=== PATIENT | female | born 1985 | race Caucasian/White ===

== ENCOUNTER → 2016-04-23 | Outpatient (CLI) | payer BC ==
[2016-04-23 08:12] LABS: CH 29.6; CHCM 34.2; HCT 38.7 % (34.0-46.0); HDW 2.42; HGB 13.1 gm/dL (11.4-16.0); MCH 29.4 pg (25.0-35.0); MCHC 33.8 g/dL (31.0-37.0); MCV 86.9 fL (80.0-100.0); Mean Platelet Volume 7.1; RBC 4.46 m/uL (3.80-5.40); RDW 12.5 % (11.5-15.5)
[2016-04-23 08:26] LABS: Glucose 91 mg/dL (74-99); Non-African American GFR(MDRD) >60 (>60 ml/min/1.73 sqM)
[2016-04-24 05:18] LABS: Toxoplasma Antibody (IgG) <3.0 IU/mL (<7.2)
== END ==
LOC: LABWHC1 07:33
PROVIDERS: ATTEND Obstetrics & Gynecology
DX: Z34.81 Encounter for supervision of other normal pregnancy, first trimester (principal); R80.9 Proteinuria, unspecified; R53.83 Other fatigue
CPT/HCPCS: 36415; 82565; 82947; 85027; 86762; 86777; 86778; 86850; 86900; 86901

== ENCOUNTER → 2016-07-09 | Outpatient (CLI) | payer BC ==
[2016-07-09 10:19] LABS: CH 29.4; CHCM 32.1; HCT 36.2 % (34.0-46.0); HGB 11.9 gm/dL (11.4-16.0); MCH 30.3 pg (25.0-35.0); MCHC 32.8 g/dL (31.0-37.0); MCV 92.3 fL (80.0-100.0); Mean Platelet Volume 6.6; RBC 3.92 m/uL (3.80-5.40); RDW 13.6 % (11.5-15.5); WBC 11.2 k/uL (3.8-10.6)
== END | disposition home or self-care (01) ==
LOC: LABWHC1 08:04
PROVIDERS: ATTEND Obstetrics & Gynecology
DX: Z34.82 Encounter for supervision of other normal pregnancy, second trimester (principal); Z3A.00 Weeks of gestation of pregnancy not specified
CPT/HCPCS: 36415; 82950; 85027

== ENCOUNTER → 2016-07-10 | Outpatient (CLI) | payer BC ==
[2016-07-10 14:28] LABS: 24-hr Urine Specific Gravity 1.005 (1.001-1.035)
== END | disposition home or self-care (01) ==
LOC: LABWHC1 08:54
PROVIDERS: ATTEND Obstetrics & Gynecology
DX: Z34.82 Encounter for supervision of other normal pregnancy, second trimester (principal)
CPT/HCPCS: 81050; 84156

== ENCOUNTER → 2016-08-19 | Outpatient (CLI) | payer BC ==
[2016-08-19 09:10] LABS: CH 29.5; CHCM 34.2; HCT 33.1 % (34.0-46.0); HDW 2.61; HGB 11.6 gm/dL (11.4-16.0); MCH 30.4 pg (25.0-35.0); Mean Platelet Volume 6.6; RBC 3.81 m/uL (3.80-5.40); RDW 13.4 % (11.5-15.5); WBC 12.6 k/uL (3.8-10.6)
[2016-08-19 09:15] LABS: MCV 86.7 fL (80.0-100.0)
[2016-08-19 09:23] LABS: ALT 22 U/L (9-52); AST 18 U/L (14-36); LDH 285 U/L (313-618); Non-African American GFR(MDRD) >60 (>60 ml/min/1.73 sqM); Uric Acid 4.6 mg/dL (3.7-7.4)
== END ==
LOC: LABWHC1 08:26
PROVIDERS: ATTEND Obstetrics & Gynecology
DX: R80.9 Proteinuria, unspecified (principal)
CPT/HCPCS: 36415; 82565; 83615; 84450; 84460; 84550; 85027

== ENCOUNTER 2016-08-20 19:49 | Outpatient (CLI) | payer BC ==
[2016-08-20 20:48] VITALS: BP 124/71; PULSE 90; RESP 18; TEMP 96
--- NOTE | 2016-08-23 16:18 | P.MSEPDOC ---
Presenting Problems - Arrival Data Date of Arrival on Unit: 08/20/16 Time of Arrival on Unit: 19:51 Mode of Transport: Ambulatory - Complaint OB-Reason for Admission/Chief Complaint: Other Comment: pain between shoulder blades Medical History - Information : 2 Para: 1 Term: 1 : 0 Abortions: Spontaneous or Elective: 0 Number of Living Children: 1 - Gestational Age Expected Date of Delivery: 10/18/16 Gestational Age by BERTHA (wks/days): 32 Weeks and 0 Days - History Complications: Prior , Other Comment: history of preeclampsia with previous Review of Systems - Review of Systems Constitutional: No problems Breast: No problems ENT: No problems Cardiovascular: No problems Respiratory: No problems Gastrointestinal: No problems Genitourinary: No problems Musculoskeletal: No problems Neurological: No problems Skin: No problems Vital Signs - Temperature Temperature: 96.0 F Temperature Source: Temporal Artery Scan - Pulse Right Sitting Brachial Pulse Rate: 90 Pulse Assessment Method: Automatic Cuff - Respirations Respiratory Rate: 18 O2 Sat by Pulse Oximetry: 99 - Blood Pressure Right Arm Blood Pressure: 124/71 Blood Pressure Mean: 88 Blood Pressure Source: Automatic Cuff Medical Screen Scoring (Pre) - Cervical Exam Dilation: Exam Deferred Effacement: Exam Deferred Membranes: Intact - Uterine Contractions Frequency: N/A Duration: N/A Intensity: N/A - Maternal Vital Signs Maternal Temperature: N/A Maternal Blood Pressure: N/A Signs of Preeclampsia: N/A Maternal Respirations: N/A - Maternal Trauma Maternal Trauma: N/A - Assessment Baseline FHR: 130 Heart Rate - NICHD Category: Category I (Normal) = 0 Position: N/A - Total Score Total Score (Pre): 0 - Level of Risk Level of Risk: Low (0-5) Physician Notification (Pre) - Physician Notified Physician Notified Date: 08/20/16 Physician Notified Time: 20:12 Physician/Practitioner Notifed:: Luis A Spoke With: luis a New Order Received: Yes Disposition - Disposition OB Disposition: Physician follow up in office, Discharge to home Discharge Date: 08/20/16 Discharge Time: 20:32 I agree with the RN Medical Screening Exam: Yes Risk & Benefit of care provided described in d/c instruction: Yes Diagnosis: PAIN IN THORACIC SPINE
== END 2016-08-20 20:32 | disposition home or self-care (01) ==
LOC: FBPOP 19:49
PROVIDERS: ATTEND Obstetrics & Gynecology
DX: O99.89 Other specified diseases and conditions complicating pregnancy, childbirth and the puerperium (principal); M54.6 Pain in thoracic spine; Z3A.32 32 weeks gestation of pregnancy
CPT/HCPCS: 59025; 99213

== ENCOUNTER → 2016-08-27 | Outpatient (CLI) | payer BC ==
[2016-08-27 10:19] LABS: CH 29.9; CHCM 34.1; HCT 33.5 % (34.0-46.0); HDW 2.59; HGB 11.1 gm/dL (11.4-16.0); MCH 29.2 pg (25.0-35.0); MCHC 33.1 g/dL (31.0-37.0); MCV 88.2 fL (80.0-100.0); Mean Platelet Volume 7.1; RDW 13.7 % (11.5-15.5); WBC 11.4 k/uL (3.8-10.6)
[2016-08-27 10:47] LABS: ALT 28 U/L (9-52); AST 20 U/L (14-36); Alkaline Phosphatase 75 U/L (38-126); Blood Urea Nitrogen 3 mg/dL (7-17); LDH 321 U/L (313-618); Non-African American GFR(MDRD) >60 (>60 ml/min/1.73 sqM); Total Bilirubin 0.2 mg/dL (0.2-1.3); Total Protein 5.4 g/dL (6.3-8.2)
[2016-08-27 12:26] LABS: Hemoglobin A1C 5.7 % (4.2-6.1)
[2016-08-28 03:15] LABS: Rubella IgG Ab 2.13 (<0.90); Toxoplasma Antibody (IgG) <3.0 IU/mL (<7.2)
== END ==
LOC: LABWHC1 09:44
PROVIDERS: ATTEND Obstetrics & Gynecology
DX: R80.9 Proteinuria, unspecified (principal)
CPT/HCPCS: 36415; 80076; 82565; 83036; 83615; 84520; 84550; 85027; 86644; 86645; 86694; 86695; 86696; 86762; 86777; 86778

== ENCOUNTER → 2016-09-05 | Outpatient (CLI) | payer BC ==
[2016-09-05 08:20] LABS: CHCM 33.9; HCT 34.7 % (34.0-46.0); HDW 2.61; HGB 11.5 gm/dL (11.4-16.0); MCH 29.5 pg (25.0-35.0); MCHC 33.1 g/dL (31.0-37.0); MCV 89.1 fL (80.0-100.0); Mean Platelet Volume 7.6; RDW 14.1 % (11.5-15.5); WBC 11.1 k/uL (3.8-10.6)
[2016-09-05 10:45] LABS: 24-hr Urine Specific Gravity 1.004 (1.001-1.035)
== END | disposition home or self-care (01) ==
LOC: LABWHC1 07:25
PROVIDERS: ATTEND Obstetrics & Gynecology
DX: R80.9 Proteinuria, unspecified (principal)
CPT/HCPCS: 36415; 81050; 83615; 84156; 84450; 84460; 84550; 85027

== ENCOUNTER → 2016-09-16 | Outpatient (CLI) | payer BC ==
[2016-09-16 10:05] LABS: CH 30.5; CHCM 33.9; HCT 36.2 % (34.0-46.0); HGB 11.8 gm/dL (11.4-16.0); MCH 29.5 pg (25.0-35.0); MCHC 32.5 g/dL (31.0-37.0); MCV 90.5 fL (80.0-100.0); Mean Platelet Volume 7.5; RDW 14.3 % (11.5-15.5); WBC 13.1 k/uL (3.8-10.6)
[2016-09-16 10:21] LABS: ALT 23 U/L (9-52); AST 20 U/L (14-36); LDH 343 U/L (313-618); Non-African American GFR(MDRD) >60 (>60 ml/min/1.73 sqM); Uric Acid 4.7 mg/dL (3.7-7.4)
== END | disposition home or self-care (01) ==
LOC: LABWHC1 09:21
PROVIDERS: ATTEND Obstetrics & Gynecology
DX: R80.9 Proteinuria, unspecified (principal)
CPT/HCPCS: 36415; 82565; 83615; 84450; 84460; 84550; 85027

== ENCOUNTER → 2016-09-22 | Outpatient (CLI) | payer BC ==
[2016-09-22 10:40] LABS: CH 30.6; CHCM 33.8; HCT 37.2 % (34.0-46.0); HDW 2.69; HGB 12.4 gm/dL (11.4-16.0); MCH 30.4 pg (25.0-35.0); MCHC 33.4 g/dL (31.0-37.0); Mean Platelet Volume 7.7; RBC 4.08 m/uL (3.80-5.40); RDW 14.3 % (11.5-15.5); WBC 13.4 k/uL (3.8-10.6)
[2016-09-22 11:03] LABS: ALT 24 U/L (9-52); AST 19 U/L (14-36); LDH 332 U/L (313-618); Non-African American GFR(MDRD) >60 (>60 ml/min/1.73 sqM); Uric Acid 5.1 mg/dL (3.7-7.4)
== END ==
LOC: LABWHC1 10:04
PROVIDERS: ATTEND Obstetrics & Gynecology
DX: R80.9 Proteinuria, unspecified (principal)
CPT/HCPCS: 36415; 82565; 83615; 84450; 84460; 84550; 85027

== ENCOUNTER 2016-09-30 10:05 | Inpatient (IN) | payer BC ==
--- NOTE | 2016-09-25 07:51 | P.HPOB ---
History of Present Illness H&P Date: 09/25/16 Chief Complaint: Patient is presenting for repeat section secondary to severe prote This patient is a pleasant 31-year-old 2 para 1 female estimated date of confinement 10/19/2016 estimated gestational age 37-2/7 weeks gestation who presents to labor and delivery for repeat section secondary to previous section, severe proteinuria, and polyhydramnios. Patient's history is such that she underwent a section last at 37 weeks for preeclampsia and proteinuria. Patient's been followed very closely this with myself and Dr. Pruett at maternal medicine. Patient once again has developed significant proteinuria with 1438 g of protein. She also has been followed for significant polyhydramnios with an JERONIMO of greater than 30. Patient's had nonstress testing and serial ultrasounds. Dr. Pruett at maternal medicine has recommended delivery at 37 weeks. Patient now presents for this. Patient has had weekly preeclampsia labs that have been normal. Blood pressures have remained normotensive as well. Review of Systems Constitutional: Denies chills, Denies fever Ears, nose, mouth and throat: Denies headache, Denies sore throat Cardiovascular: Denies chest pain, Denies shortness of breath Respiratory: Denies cough Gastrointestinal: Reports heartburn Genitourinary: Reports Menstruation: Reports amenorrhea Musculoskeletal: bilateral: ankle swelling Past Medical History Past Medical History: Supraventricular Tachycardia (SVT) Additional Past Medical History / Comment(s): Persistent proteinuria; viral menengitis History of Any Multi-Drug Resistant Organisms: None Reported Past Surgical History: Adenoidectomy, Section, Heart Catheterization, Tonsillectomy Additional Past Surgical History / Comment(s): Patient has had liposuction of her lower abdomen. Past Anesthesia/Blood Transfusion Reactions: Postoperative Nausea & Vomiting ( PONV) Smoking Status: Never smoker - Past Family History Father Family Medical History: Hyperlipidemia Additional Family Medical History / Comment(s): knee surgery, kidney stones, Medications and Allergies Home Medications Medication Instructions Recorded Confirmed Type Aspirin 1 PO DAILY 08/20/16 History Pnv,Calcium 72/Iron/Folic Acid 1 tab PO DAILY 08/20/16 08/20/16 History [ Plus Tablet] Allergies Allergy/AdvReac Type Severity Reaction Status Date / Time metoclopramide HCl Allergy Unknown Verified 08/20/16 20:06 [From Reglan] Exam - OBG Physical Exam Abdomen: bowel sounds normal, no diffuse tenderness, no bruit present, no guarding noted, no hepatomegaly, no splenomegaly, no mass Vulva: both: normal Vagina: normal moisture, no discharge Cervix: Cervix in the office was closed thick and high. Uterus: enlarged (Fundal height was 43 cm.) Results blood work shows she is B positive, rubella immune, RPR nonreactive, hepatitis B negative, HIV negative, Glucola was normal as well as hemoglobin A1c , maternal medicine level III and heart echo were normal, group B strep was negative, 24-hour urine showed 1438 g of protein. Ultrasound shows polyhydramnios with an JERONIMO of 30.1 cm. Assessment and Plan (1) Proteinuria affecting in third trimester Narrative/Plan: This is a pleasant 31-year-old 2 para 1 female 37-2/7 weeks gestation with multiple complicating factors including significant proteinuria, polyhydramnios. Per recommendations from maternal- medicine, plan is delivery at 37 weeks. Patient does have a history of previous section and request repeat. Therefore, plan is repeat section. Patient and I have discussed the surgery and risks including risks of infection, bleeding, possible injury to bowel, bladder, vessels, and/or other organs. Patient understands risk of DVT and pulmonary embolism. All the patient's questions are answered and a written consent is obtained. Status: Acute (2) Polyhydramnios affecting in third trimester Status: Acute (3) Previous delivery affecting Status: Acute
[2016-09-26 10:41] VITALS: BMI 34.5
[2016-09-30] MEDS ORDERED: LACTATED RINGERS 1,000 ML IV SCH (10:16)
[2016-09-30] MEDS ORDERED: LACTATED RINGERS 1,000 ML IV ONE (10:16)
[2016-09-30] MEDS ORDERED: CITRIC ACID-SODIUM CITRATE 15 ML CUP PO ONE (10:16)
[2016-09-30 11:00] LABS: Basophils % (A) 0 %; CH 29.9; CHCM 34.2; Eosinophils # (A) 0.1 k/uL (0-0.7); Eosinophils % (A) 1 %; HCT 37.2 % (34.0-46.0); HDW 2.75; HGB 12.6 gm/dL (11.4-16.0); Luc # (Auto) 0.21; Luc % (Auto) 2; Lymphocytes % (A) 9 %; MCH 29.7 pg (25.0-35.0); MCHC 33.9 g/dL (31.0-37.0); MCV 87.7 fL (80.0-100.0); Mean Platelet Volume 7.1; Monocytes # (A) 0.7 k/uL (0-1.0); Monocytes % (A) 6 %; Neutrophils # (A) 9.8 k/uL (1.3-7.7); Neutrophils % (A) 83 %; RBC 4.24 m/uL (3.80-5.40); RDW 13.8 % (11.5-15.5); WBC 11.8 k/uL (3.8-10.6); WBC (Perox) 12.87
[2016-09-30 11:03] LABS: Prothrombin Time 10.1 sec (9.0-12.0)
[2016-09-30 11:05] LABS: Bilirubin, Delta 0.1 mg/dL (0.0-0.2); Total Bilirubin 0.4 mg/dL (0.2-1.3); Total Protein 5.4 g/dL (6.3-8.2)
[2016-09-30] MEDS ORDERED: OXYTOCIN 10 UNIT/ML 1 ML VIAL ONE (11:59)
[2016-09-30] MEDS ORDERED: PHENYLEPHRINE-0.9% NACL SYG 1 MG/10 ML SYRINGE ONE (11:59)
[2016-09-30] MEDS ORDERED: ePHEDrine SULFATE/0.9% NACL/PF 50 MG/5 ML SYRINGE IV ONE (11:59)
[2016-09-30] MEDS ORDERED: MORPHINE SULFATE (PF) 0.3 MG/0.3 ML SYR ONE (11:59)
[2016-09-30] MEDS ORDERED: KETOROLAC 30 MG/ML 1 ML VIAL ONE (11:59)
[2016-09-30] MEDS ORDERED: ONDANSETRON 4 MG/2 ML VIAL ONE (11:59)
[2016-09-30] MEDS ORDERED: ceFAZolin 2 GM in SODIUM CHLORIDE 0.9% 100 ML IVPB ONE (12:00)
--- NOTE | 2016-09-30 12:44 | P.OP ---
Date of Procedure: 09/30/16 Preoperative Diagnosis: #1: 37-2/7 week intrauterine . #2: Previous low transverse desires repeat. #3: Significant proteinuria requiring delivery. #4: Polyhydramnios. Postoperative Diagnosis: #1: Same. #2: macrosomia Procedure(s) Performed: Repeat low transverse section. Implants: Anesthesia: spinal Surgeon: Moises Tran User Interface Developer #1: Stephane Zepeda Estimated Blood Loss (ml): 800 Pathology: other (Placenta) Condition: stable Disposition: floor Indications for Procedure: Please see dictated H&P for intimate details of this patient's admission. Brief summary this is a pleasant 31-year-old 2 para 1 female 37-2/7 weeks gestation who is admitted to labor and delivery for repeat section secondary to severe proteinuria and polyhydramnios. Please see history and physical in regards to the indications for delivery. Patient does understand the surgery and risks including risks of infection, bleeding, possible injury to bowel, bladder, vessels, and/or other organs. She also understands risk of DVT and pulmonary embolism. All the patient's questions are answered and a written consent is obtained. Operative Findings: This was a vigorous viable female Apgars 9 and 9 delivery time is 1213 hrs. Infant had spontaneous respirations and good cry. There was significant polyhydramnios. Description of Procedure: This patient has a Barakat catheter placed to straight drain. She is subsequently taken to the operating room where she sat up and spinal anesthetic is administered without incident. With an adequate level of anesthesia she has abdominal prep and drape. Scalpel is then taken in the previous Pfannenstiel incision is incised. A second scalpel is taken down to the fascia and it is scored with the scalpel. The fascial incision is extended bilaterally using the Lema scissors. The fascia is then dissected sharply off the rectus muscles. The rectus muscles are and the peritoneum is identified and entered sharply. The peritoneal incision extended superior and inferior without difficulty. Bladder blade is then placed. The bladder peritoneum was taken off the lower uterine segment sharply. Scalpel is then taken and a low transverse uterine incision is then made. Using a hemostat I gently into the uterine cavity and there is loss of a large amount of clear fluid. This incision is extended bluntly. The 's head is then guided through the incision. With fundal pressure we have delivery the 's head. It is bulb suctioned. We then have delivery anterior and posterior shoulder and rest this infant's body. This is a vigorous viable female Apgars are 9 and 9 delivery time is 1213 hrs. Infant grossly appears normal as Apgars of 9 and 9. After delivery of the the umbilical cord is doubly clamped and cut appears to be trivascular. The placenta is then manually extracted intact. The uterus is then externalized and the uterine incision demarcated with Kimble clamps. Uterine incision is then closed using 0 Vicryl running locked fashion 2 layers. Excellent hemostasis is noted. Bladder peritoneum was then reapproximated using a 3-0 Vicryl usual fashion. With this done excess fluid is removed from the abdomen and pelvis. The uterus tubes and ovaries appear normal for term gestation. The uterus is placed back into the abdomen. The parietal peritoneum was then closed using 0 Vicryl running fashion. Rectus muscles are reapproximated in 0 Vicryl interrupted fashion. Fascia is then closed using 0 PDS. Fascial incision is intact and hemostatic. Subcutaneous tissues and closed using a 3-0 Vicryl. Skin is and closed using susana. All counts are correct 3. There are no complications. Infant and mother are taken to the birthing suite in satisfactory condition.
[2016-09-30] MEDS ORDERED: ACETAMINOPHEN TAB 325 MG TAB PO PRN (14:04)
[2016-09-30] MEDS ORDERED: Acetaminophen-Codeine 300-30mg TAB PO PRN ×2 (14:04)
[2016-09-30] MEDS ORDERED: OXYTOCIN 20 UNITS/1000 ML NS 1,000 ML IV SCH (14:04)
[2016-09-30] MEDS ORDERED: diphenhydrAMINE 25 MG CAP PO PRN (14:04)
[2016-09-30] MEDS ORDERED: ZOLPIDEM 5 MG TAB PO PRN (14:04)
[2016-09-30] MEDS ORDERED: NALOXONE 0.4 MG/ML 1 ML VIAL IV PRN (14:04)
[2016-09-30] MEDS ORDERED: ONDANSETRON 4 MG/2 ML VIAL IVP PRN ×2 (14:04→17:24)
[2016-09-30] MEDS ORDERED: METOCLOPRAMIDE 5 MG/ML 2 ML VIAL IVP PRN (14:04)
[2016-09-30] MEDS ORDERED: SIMETHICONE 80 MG CHEWABLE PO PRN (14:04)
[2016-09-30] MEDS ORDERED: DEXAMETHASONE SOD PHOSPHATE 4 MG/ML 1 ML VIAL IV STA (14:41)
[2016-09-30] MEDS ORDERED: DEXAMETHASONE SOD PHOSPHATE 10 MG/ML 1 ML VIAL IV STA (14:41)
[2016-09-30] MEDS: LACTATED RINGERS 1,000 ML IV SCH (15:36)
[2016-09-30] MEDS: diphenhydrAMINE 50 MG/ML 1 ML VIAL IVP PRN (19:55)
[2016-09-30] MEDS: SENNOSIDES-DOCUSATE SODIUM 1 EACH TAB PO SCH (20:46)
[2016-10-01] MEDS: LACTATED RINGERS 1,000 ML IV SCH ×3 (00:13→22:42)
[2016-10-01] MEDS: diphenhydrAMINE 50 MG/ML 1 ML VIAL IVP PRN ×2 (01:36→09:18)
[2016-10-01] MEDS: KETOROLAC 30 MG/ML 1 ML VIAL IVP PRN ×3 (01:48→15:59)
--- NOTE | 2016-10-01 06:36 | P.PNOBGPC ---
Subjective - Subjective Patient reports: Reports appetite normal, Reports voiding normally, Reports pain well controlled, Reports ambulating normally : doing well Objective - Vital Signs Latest vital signs: Vital Signs Temp Pulse Resp BP Pulse Ox 10/01/16 04:00 98.1 F 67 16 112/59 96 10/01/16 00:00 97.9 F 76 16 116/51 97 09/30/16 20:00 98.1 F 83 16 142/77 98 09/30/16 15:30 98.4 F 69 16 108/54 09/30/16 14:39 74 18 112/55 09/30/16 14:09 80 18 110/59 09/30/16 13:39 79 18 105/52 97 09/30/16 13:24 78 18 102/55 98 09/30/16 13:09 89 18 102/48 09/30/16 12:54 89 18 102/48 97 09/30/16 12:39 97.5 F L 84 18 106/48 98 09/30/16 10:28 97.3 F L 88 18 122/61 Intake and Output 09/30/16 09/30/16 10/01/16 14:59 22:59 06:59 Intake Total 2000 300 Output Total 325 450 Balance 2000 -325 -150 Intake: IV 900 Intake, IV Titration 1100 Amount Lactated Ringers 1,000 ml 1000 @ 4000 mls/hr IV .Q15M ONE Rx#:[id number] ceFAZolin 2 gm In Sodium 100 Chloride 0.9% 100 ml @ 100 mls/hr IVPB ONCE ONE Rx#:[id number] Oral 300 Output: Urine 200 450 Uretheral (Barakat) 250 Emesis 125 Other: # Voids 1 Weight 97.069 kg Patient Weight 10/01/16 06:59 Weight 97.069 kg - Exam Lungs: bilateral: normal Chest: Normal S1, Normal S2 Extremities: Present: normal Abdomen: Present: normal appearance, soft. Absent: distention, tenderness Incision: Present: normal, dry, intact Uterus: Present: normal, firm - Labs Labs: Abnormal Lab Results - Last 24 Hours (Table) 09/30/16 09/30/16 Range/Units 10:45 10:45 WBC 11.8 H (3.8-10.6) k/uL Neutrophils # 9.8 H (1.3-7.7) k/uL Total Protein 5.4 L (6.3-8.2) g/dL Albumin 3.1 L (3.5-5.0) g/dL Assessment and Plan (1) Proteinuria affecting in third trimester Narrative/Plan: Postoperative day #1. Patient is resting without complaints. Vital signs are stable she is afebrile. Uterus is firm nontender and her incision is intact and dry. CBC is pending at time of this dictation. My impression is a normal postoperative course. Plan is to check CBC, encourage ambulation, allow the patient to shower, advanced to a regular diet. Current Visit: Yes Status: Acute Code(s): O12.13 - GESTATIONAL PROTEINURIA, THIRD TRIMESTER SNOMED Code(s): 09003529 (2) Polyhydramnios affecting in third trimester Current Visit: Yes Status: Acute Code(s): O40.3XX0 - POLYHYDRAMNIOS, THIRD TRIMESTER, NOT APPLICABLE OR UNSP SNOMED Code(s): 561249237 (3) Previous delivery affecting Current Visit: Yes Status: Acute Code(s): O34.219 - MATERNAL CARE FOR UNSP TYPE SCAR FROM PREVIOUS DEL SNOMED Code(s): 201615108
[2016-10-01 08:01] LABS: Basophils % (A) 0 %; CH 29.8; CHCM 33.5; Eosinophils # (A) 0.1 k/uL (0-0.7); Eosinophils % (A) 1 %; HDW 2.64; HGB 10.1 gm/dL (11.4-16.0); Luc # (Auto) 0.22; Luc % (Auto) 2; Lymphocytes # (A) 1.4 k/uL (1.0-4.8); Lymphocytes % (A) 10 %; MCHC 33.6 g/dL (31.0-37.0); MCV 89.3 fL (80.0-100.0); Mean Platelet Volume 6.9; Monocytes # (A) 0.9 k/uL (0-1.0); Monocytes % (A) 6 %; Neutrophils # (A) 12.3 k/uL (1.3-7.7); Neutrophils % (A) 82 %; RBC 3.36 m/uL (3.80-5.40); RDW 13.8 % (11.5-15.5); WBC 14.9 k/uL (3.8-10.6); WBC (Perox) 15.62
[2016-10-01] MEDS: SENNOSIDES-DOCUSATE SODIUM 1 EACH TAB PO SCH ×2 (09:17→22:03)
[2016-10-01] MEDS: IBUPROFEN 600 MG TAB PO PRN (22:02)
--- NOTE | 2016-10-02 06:10 | P.PNOBGPC ---
Subjective - Subjective Patient reports: Reports appetite normal, Reports voiding normally, Reports pain well controlled, Reports ambulating normally : doing well Objective - Vital Signs Latest vital signs: Vital Signs Temp Pulse Resp BP Pulse Ox 10/02/16 00:00 97.9 F 76 16 111/70 10/01/16 16:00 97.9 F 81 16 99/55 99 10/01/16 12:00 98.1 F 72 16 103/60 98 10/01/16 07:59 98.1 F 73 16 103/53 98 Intake and Output 10/01/16 10/01/16 10/02/16 14:59 22:59 06:59 Output Total 400 Balance -400 Output: Urine 400 Other: # Voids 1 1 1 - Exam Lungs: bilateral: normal Chest: Normal S1, Normal S2 Extremities: Present: normal Abdomen: Present: normal appearance, soft. Absent: distention, tenderness Incision: Present: normal, dry, intact Uterus: Present: normal, firm - Labs Labs: Abnormal Lab Results - Last 24 Hours (Table) 10/01/16 Range/Units 07:06 WBC 14.9 H (3.8-10.6) k/uL RBC 3.36 L (3.80-5.40) m/uL Hgb 10.1 L (11.4-16.0) gm/dL Hct 30.0 L (34.0-46.0) % Neutrophils # 12.3 H (1.3-7.7) k/uL Assessment and Plan (1) Proteinuria affecting in third trimester Narrative/Plan: Post operative day #2. Patient is resting without complaints. Vital signs are stable she is afebrile. Uterus is firm nontender her incision is intact and dry. CBC was normal yesterday. My impression is a normal postoperative course. Plan is to continue routine postoperative care. Current Visit: Yes Status: Acute Code(s): O12.13 - GESTATIONAL PROTEINURIA, THIRD TRIMESTER SNOMED Code(s): 06225499 (2) Polyhydramnios affecting in third trimester Current Visit: Yes Status: Acute Code(s): O40.3XX0 - POLYHYDRAMNIOS, THIRD TRIMESTER, NOT APPLICABLE OR UNSP SNOMED Code(s): 130800925 (3) Previous delivery affecting Current Visit: Yes Status: Acute Code(s): O34.219 - MATERNAL CARE FOR UNSP TYPE SCAR FROM PREVIOUS DEL SNOMED Code(s): 443445800
[2016-10-02] MEDS: SENNOSIDES-DOCUSATE SODIUM 1 EACH TAB PO SCH ×2 (08:04→20:27)
[2016-10-02] MEDS: IBUPROFEN 600 MG TAB PO PRN ×3 (08:04→20:27)
[2016-10-03 00:09] VITALS: RESP 16
[2016-10-03] MEDS: IBUPROFEN 600 MG TAB PO PRN (02:18)
--- NOTE | 2016-10-03 06:13 | P.PNOBGPC ---
Subjective - Subjective Patient reports: Reports appetite normal, Reports voiding normally, Reports pain well controlled, Reports ambulating normally : doing well Objective - Vital Signs Latest vital signs: Vital Signs Temp Pulse Resp BP Pulse Ox 10/03/16 00:00 98.7 F 56 L 16 103/58 98 10/02/16 16:00 98.4 F 86 18 110/70 98 10/02/16 08:00 98.2 F 71 18 125/72 99 Intake and Output 10/02/16 10/02/16 10/03/16 14:59 22:59 06:59 Other: # Voids 1 # Bowel Movements 1 - Exam Lungs: bilateral: normal Chest: Normal S1, Normal S2 Extremities: Present: normal Abdomen: Present: normal appearance, soft. Absent: distention, tenderness Incision: Present: normal, dry, intact Uterus: Present: normal, firm Assessment and Plan (1) Proteinuria affecting in third trimester Narrative/Plan: Patient is resting without complaints. Vital signs are stable she's afebrile. Uterus is firm nontender she's having normal lochia. Patient is tolerating regular diet, urinating, ambulating without difficulty. Incision is intact and dry. My impression is a normal course. Plan is to continue routine care discharge home later this morning. Current Visit: Yes Status: Acute Code(s): O12.13 - GESTATIONAL PROTEINURIA, THIRD TRIMESTER SNOMED Code(s): 86794121 (2) Polyhydramnios affecting in third trimester Current Visit: Yes Status: Acute Code(s): O40.3XX0 - POLYHYDRAMNIOS, THIRD TRIMESTER, NOT APPLICABLE OR UNSP SNOMED Code(s): 537773332 (3) Previous delivery affecting Current Visit: Yes Status: Acute Code(s): O34.219 - MATERNAL CARE FOR UNSP TYPE SCAR FROM PREVIOUS DEL SNOMED Code(s): 886984098
--- NOTE | 2016-10-03 06:16 | P.DS ---
Providers Date of admission: 09/30/16 10:05 Expected date of discharge: 10/03/16 Attending physician: Moises Tran Primary care physician: Iron Zuñiga - Discharge Diagnosis(es) (1) Proteinuria affecting in third trimester Current Visit: Yes Status: Acute (2) Polyhydramnios affecting in third trimester Current Visit: Yes Status: Acute (3) Previous delivery affecting Current Visit: Yes Status: Acute Hospital Course: Please see dictated H&P for intimate details of this patient's admission. Brief summary this is a pleasant 31-year-old 2 para 1 female 37-2/7 weeks gestation who is admitted to labor and delivery for repeat section secondary to significant proteinuria, polyhydramnios. Patient is repeat low transverse section for viable female infant. Please see dictated operative note. Postoperative patient does well and on postoperative 3 is felt to be stable for discharge home follow up with me in 1 week. Procedures: Repeat low transverse sections. Patient Condition at Discharge: Good Plan - Discharge Summary New Discharge Prescriptions: New Acetaminophen-Codeine 300-30mg [Tylenol w/codeine #3] 1 - 2 each PO Q4HR PRN #30 tab PRN Reason: Mild Pain Ibuprofen [Motrin] 600 mg PO Q6HR PRN #40 tab PRN Reason: Mild Pain Or Fever >= 100.5 No Action Pnv,Calcium 72/Iron/Folic Acid [ Plus Tablet] 1 tab PO DAILY Aspirin 81 mg PO DAILY Ranitidine HCl [Zantac] 150 mg PO BID Cetirizine HCl [Zyrtec] 10 mg PO DAILY Dha 1 tab PO DAILY Discharge Medication List Aspirin 81 mg PO DAILY 08/20/16 [History] Pnv,Calcium 72/Iron/Folic Acid [ Plus Tablet] 1 tab PO DAILY 08/20/16 [ History] Cetirizine HCl [Zyrtec] 10 mg PO DAILY 09/26/16 [History] Dha 1 tab PO DAILY 09/26/16 [History] Ranitidine HCl [Zantac] 150 mg PO BID 09/26/16 [History] Acetaminophen-Codeine 300-30mg [Tylenol w/codeine #3] 1 - 2 each PO Q4HR PRN # 30 tab 10/03/16 [Rx] Ibuprofen [Motrin] 600 mg PO Q6HR PRN #40 tab 10/03/16 [Rx] Follow up Appointment(s)/Referral(s): Moises Tran MD [STAFF PHYSICIAN] - 1 Week (Patient also has a visit on November 10 at 9:15 AM.) Patient Instructions/Handouts: (DC) Activity/Diet/Wound Care/Special Instructions: No heavy lifting or strenuous activity for 6 weeks. Please call if any fever, chills, excessive vaginal bleeding, and/or abdominal pain. Discharge Disposition: HOME SELF-CARE
[2016-10-03] MEDS: SENNOSIDES-DOCUSATE SODIUM 1 EACH TAB PO SCH (08:13)
[2016-10-03 08:20] VITALS: BP 108/71; PULSE 75; TEMP 98.3
== END 2016-10-03 10:30 | disposition home or self-care (01) | DRG 766 ==
LOC: 4FBP 10:05
PROVIDERS: ADMIT Obstetrics & Gynecology; ATTEND Obstetrics & Gynecology
PROC: 10D00Z1 Extraction of Products of Conception, Low, Open Approach (ICD-10-PCS; principal; 2016-09-30 12:00)
DX: O40.3XX0 Polyhydramnios, third trimester, not applicable or unspecified (principal); O36.63X0 Maternal care for excessive fetal growth, third trimester, not applicable or unspecified; Z37.0 Single live birth; O34.211 Maternal care for low transverse scar from previous cesarean delivery; O12.14 Gestational proteinuria, complicating childbirth; Z3A.37 37 weeks gestation of pregnancy
CPT/HCPCS: 80076; 85025; 85610; 85730; 86850; 86900; 86901; 88307

== ENCOUNTER → 2017-09-17 | Outpatient (CLI) | payer BC, MEDICAID ==
--- NOTE | 2017-09-17 14:44 | XR ---
EXAMINATION TYPE: XR chest 2V DATE OF EXAM: 09/17/2017 COMPARISON: Prior chest x-ray 03/13/2015 HISTORY: Right lower chest pain, abnormal finding in lung field TECHNIQUE: Frontal and lateral views of the chest are obtained. FINDINGS: There is no focal air space opacity, pleural effusion, or pneumothorax seen. The cardiac silhouette size is within normal limits. The osseous structures are intact. IMPRESSION: No acute cardiopulmonary process. There is improved aeration as compared to prior exam.
== END | disposition home or self-care (01) ==
LOC: RADXRMAIN 12:25
PROVIDERS: ATTEND Family Medicine
DX: R91.8 Other nonspecific abnormal finding of lung field (principal)
CPT/HCPCS: 71046

== ENCOUNTER → 2017-12-16 | Outpatient (CLI) | payer OTHER ==
--- NOTE | 2017-12-16 15:46 | XR ---
EXAMINATION TYPE: XR thoracic spine 2V DATE OF EXAM: 12/16/2017 COMPARISON: Chest x-ray 09/17/2017 HISTORY: Mid back pain Alignment is anatomic. There is no compression deformities. Vertebral body height and disc interspa kayce are maintained. There is hypertrophic and degenerative disc disease involving the mid and lower lumbar spine. There is a mild wedge deformity at the thoracolumbar junction IMPRESSION: 1. Multilevel degenerative disc disease and hypertrophic changes. 2. There is a mild wedge deformity at the thoracolumbar junction stable from the chest x-ray of 2017. Recommend follow-up MRI..
== END | disposition home or self-care (01) ==
LOC: RADXRMAIN 14:56
PROVIDERS: ATTEND Family Medicine
DX: M43.8X5 Other specified deforming dorsopathies, thoracolumbar region (principal); M51.36 Other intervertebral disc degeneration, lumbar region; M47.816 Spondylosis without myelopathy or radiculopathy, lumbar region
CPT/HCPCS: 72070

== ENCOUNTER → 2018-04-30 | Outpatient (CLI) | payer OTHER ==
--- NOTE | 2018-04-30 14:40 | US ---
EXAMINATION TYPE: US transvaginal DATE OF EXAM: 04/30/2018 COMPARISON: CT from 2015 CLINICAL HISTORY: N94.6 Dysmenorrhea. Irregular menses TECHNIQUE: Transvaginal (TV) Date of LMP: 04/18/18 EXAM MEASUREMENTS: Uterus: 7.0 x 4.8 x 6.0 cm Endometrial Stripe: 0.6 cm Right Ovary: 4.3 x 1.4 x 1.4 cm Left Ovary: 2.8 x 2.4 x 1.5 cm 1. Uterus: Retroverted heterogeneous 2. Endometrium: wnl 3. Right Ovary: follicles noted 4. Left Ovary: follicles noted 5. Bilateral Adnexa: appears wnl 6. Posterior cul-de-sac: wnl Heterogeneous retroverted uterus is present. Prominent vessels along the periphery are seen. No free fluid in pelvic cul-de-sac. Both ovaries are seen with scattered peripheral follicles identified bilaterally. IMPRESSION: No suspicious finding seen to account for patient's symptoms of irregular menses.
[2018-04-30 15:11] LABS: T4, Free (Free Thyroxine) 0.9 ng/dL (0.78-2.19)
== END | disposition home or self-care (01) ==
LOC: RADUSWWP 13:41
PROVIDERS: ATTEND Obstetrics & Gynecology
DX: N94.6 Dysmenorrhea, unspecified (principal); Z13.29 Encounter for screening for other suspected endocrine disorder
CPT/HCPCS: 36415; 76830; 84439; 84443; 84479

== ENCOUNTER → 2019-07-07 | Outpatient (CLI) | payer OTHER ==
--- NOTE | 2019-07-07 09:10 | US ---
EXAMINATION TYPE: US abdomen complete DATE OF EXAM: 07/07/2019 COMPARISON: NONE CLINICAL HISTORY: R10.11 right upper quadrant pain. RUQ pain. NPO. EXAM MEASUREMENTS: Liver Length: 17.6 cm Gallbladder Wall: 0.2 cm CBD: 0.3 cm Spleen: 11.1 cm Right Kidney: 10.1 x 5.1 x 3.7 cm Left Kidney: 10.4 x 5.4 x 5.5 cm Pancreas: Pancreatic head and tail obscured by overlying bowel gas Liver: wnl Gallbladder: No stones seen Evidence for sonographic Polanco's sign: neg CBD: wnl Spleen: wnl Right Kidney: No hydronephrosis or masses seen Left Kidney: No hydronephrosis or masses seen Upper IVC: wnl Abd Aorta: No AAA visualized The liver is homogenous. The intrahepatic portion of the IVC and proximal abdominal aorta are within normal limits. There is no evidence of cholelithiasis. Common bile duct is unremarkable. The visu alized portions of the pancreas are homogenous. The spleen is unremarkable. Kidneys are symmetric a nd free of hydronephrosis. No renal lesions are seen. IMPRESSION: Unremarkable abdominal ultrasound. No sonographic evidence of cholelithiasis nor acute ch olecystitis. Slight obscuration of the pancreatic head and tail due to overlying bowel gas.
== END | disposition home or self-care (01) ==
LOC: RADUSWWP 08:32
PROVIDERS: ATTEND Family Medicine
DX: K86.89 Other specified diseases of pancreas (principal)
CPT/HCPCS: 76700

== ENCOUNTER → 2021-09-10 | Outpatient (CLI) | payer OTHER ==
--- NOTE | 2021-09-10 09:31 | MM ---
Reason for Exam: Clinical finding. Patient History: Menarche at age 14. First Full-Term at age 28. Patient has history of breast feeding. Patient used Hormonal Contraceptives for 15 years. Risk Values: Bettie 5 year model risk: 0.3%. NCI Lifetime model risk: 10.4%. Tissue Density: The breast tissue is heterogeneously dense. This may lower the sensitivity of mammography. Findings: Analyzed By CAD. Parenchymal tissue pattern appears symmetrical. No suspicious spiculated or lobular masses clustered microcalcifications or architectural distortion are radiographically apparent. No mammographic abnormality at the level of palpable abnormality is identified. Ultrasound is recommended for additional evaluation. Overall Assessment: Incomplete: need additional imaging evaluation, BI-RAD 0 Management: Diagnostic Breast Ultrasound of the right breast. A clinical breast exam by your physician is recommended on an annual basis and results should be correlated with mammographic findings. This exam should not preclude additional follow-up of suspicious palpable abnormalities. Results were given to the patient verbally at the time of exam. Electronically signed and approved by: Vikash Canseco D.O. Radiologis
--- NOTE | 2021-09-10 09:31 | USB ---
Reason for Exam: Clinical finding. Patient History: Menarche at age 14. First Full-Term at age 28. Patient has history of breast feeding. Patient used Hormonal Contraceptives for 15 years. Risk Values: Bettie 5 year model risk: 0.3%. NCI Lifetime model risk: 10.4%. Technique: Method: Whole Breast Handheld. Patient Position: Supine. Findings: The whole breast of the right breast, the axilla of the right breast and the retroareolar of the right breast were scanned. There is a lobulated hypoechoic area extending towards the chest wall measuring 1.5 cm in length. This appears wider than tall. This is considered suspicious and biopsy is recommended. This correlates with the palpable abnormality. The remaining portions of the breasts appear unremarkable. Overall Assessment: Suspicious, BI-RAD 4 Management: Ultrasound Core Biopsy of the right breast. A clinical breast exam by your physician is recommended on an annual basis and results should be correlated with mammographic findings. Electronically signed and approved by: Vikash Canseco D.O. Radiologis
== END ==
LOC: RADMAMWWP 08:20
PROVIDERS: ATTEND Family Medicine
DX: R92.8 Other abnormal and inconclusive findings on diagnostic imaging of breast (principal)
CPT/HCPCS: 77062; 77066

== ENCOUNTER → 2021-09-17 | Day surgery (SDC) | payer OTHER ==
--- NOTE | 2021-09-20 15:50 | USB ---
Risk Values: Bettie 5 year model risk: 0.3%. NCI Lifetime model risk: 10.3%. Prior Study Comparison: 09/10/2021 Bilateral MG 3D diag mammo w/cad [facility], [facility]. Pathology Description: Location: 9 o'clock. Needle Type: Celero Cores: 6 The procedure of ultrasound guided core biopsy was explained to the patient. Benefits, alternatives, and risks were discussed. An informed consent was then obtained. The patient was placed in supine positioning for imaging and for the procedure. The overlying skin was prepped and draped in usual sterile fashion. Lidocaine was used as anesthetic into the skin and subcutaneous tissue up to area of concern in the right 9:00 breast. Under ultrasound guidance, a 12-gauge vacuum assisted biopsy gun device was used to obtain 5 core samples. Following this, a biopsy clip was left in lesion. The patient tolerated the procedure well without any immediate complication. The patient was kept in the radiology department for short stay after the procedure and then discharged home in stable condition. Impression: Successful, uncomplicated ultrasound guided core biopsy of area of concern in the right 9:00 breast, full pathology results to follow. Pathology Results: Result: Benign, Fibrocystic change. RIGHT BREAST, 9:00, NEEDLE CORE BIOPSY: Benign breast tissue with fibrocystic changes. Overall Assessment: Benign Management: Diagnostic Breast Ultrasound of the right breast in 6 months. Electronically signed and approved by: Yoni Kaiser M.D. Radiologis
== END ==
LOC: RADUSWWP 10:07
PROVIDERS: ATTEND Family Medicine
DX: N60.11 Diffuse cystic mastopathy of right breast (principal); Z88.8 Allergy status to other drugs, medicaments and biological substances; Z79.82 Long term (current) use of aspirin; Z79.899 Other long term (current) drug therapy
CPT/HCPCS: 19083; A4648

== ENCOUNTER 2023-03-10 09:20 | Day surgery (SDC) | payer OTHER ==
[2023-03-04 15:48] VITALS: BMI 25.8
[~2023-03-10 09:20] MED LIST: LACTATED RINGERS 1,000 ML IV SCH; LIDOCAINE 1% (10MG/ML) FOR IV START INTRADERMA PRN
[2023-03-10 09:48] VITALS: TEMP 97.9
[2023-03-10] MEDS ORDERED: ONDANSETRON 4 MG/2 ML VIAL ONE (09:52)
[2023-03-10] MEDS ORDERED: PROPOFOL 10 MG/ML 20 ML VIAL IV ONE (09:54)
[2023-03-10] MEDS ORDERED: LIDOCAINE 1% INJ 10MG/ML (20 ML MDV) ONE (09:54)
[2023-03-10] MEDS ORDERED: ONDANSETRON 4 MG/2 ML VIAL IVP ONE (09:54)
--- NOTE | 2023-03-10 09:59 | P.GSHP ---
History of Present Illness H&P Date: 03/10/23 Chief Complaint: Change in bowel habits 37-year-old female here with complaints of chronic constipation. 2 bowel movements per month. Saw pediatric GI in the past and had a narrowing somewhere in the rectal region. No rectal bleeding. No family history of colon cancer. No rectal bleeding. Past Medical History Past Medical History: Supraventricular Tachycardia (SVT) Additional Past Medical History / Comment(s): HX viral menengitis, CHANGE IN BOWEL HABITS-SEVERE CONSTIPATION AND PAIN, SVT-NO PROBLEMS IN PAST 9 YEARS History of Any Multi-Drug Resistant Organisms: None Reported Past Surgical History: Adenoidectomy, Appendectomy, Cardiac Ablation, Section, Heart Catheterization, Tonsillectomy Additional Past Surgical History / Comment(s): Patient has had liposuction of her lower abdomen. HAS HAD 6 CARDIAC ABLATIONS-LAST ONE 9 YEARS AGO Past Anesthesia/Blood Transfusion Reactions: Postoperative Nausea & Vomiting (PONV) Smoking Status: Never smoker - Past Family History Father Family Medical History: Hyperlipidemia Additional Family Medical History / Comment(s): knee surgery, kidney stones, Medications and Allergies Home Medications Medication Instructions Recorded Confirmed Type Phentermine/Topiramate [Qsymia 1 cap PO QAM 09/10/21 03/10/23 History 3.75 mg-23 mg Capsule] Multivit with Calcium,Iron,Min 1 each PO DAILY 03/04/23 03/10/23 History [Women's Multivitamin] norethindrone-e.estradioL-iron 1 each PO HS 03/04/23 03/10/23 History [Blisovi Fe 1.5-30 Tablet] Allergies Allergy/AdvReac Type Severity Reaction Status Date / Time metoclopramide HCl AdvReac Mild ANXIETY Verified 03/10/23 09:31 [From Reglan] AND AGITATION Surgical - Exam Vital Signs Temp Pulse Resp BP Pulse Ox 97.9 F 91 18 137/82 100 03/10/23 09:35 03/10/23 09:35 03/10/23 09:35 03/10/23 09:35 03/10/23 09:35 Physical exam: General: Well-developed, well-nourished HEENT: Normocephalic, sclerae nonicteric Abdomen: Nontender, nondistended Extremities: No edema Neuro: Alert and oriented Assessment and Plan (1) Change in bowel habits Narrative/Plan: Will proceed with colonoscopy at this time. Current Visit: Yes Status: Acute Code(s): R19.4 - CHANGE IN BOWEL HABIT SNOMED Code(s): 87203481
--- NOTE | 2023-03-10 10:12 | P.PCN ---
Date of Procedure: 03/10/23 Procedure(s) Performed: PREOPERATIVE DIAGNOSIS: Change in bowel habits POSTOPERATIVE DIAGNOSIS: Normal exam PROCEDURE: Colonoscopy ANESTHESIA: MAC SURGEON: Broderick Patino M.D. SPECIMENS: None ENDOSCOPIC PROCEDURE: The patient was placed on the endoscopy table in the left decubitus position. The Olympus colonoscope was inserted into the anus and passed under direct visualization to the base of the cecum. The appendiceal orifice was visualized. From that point the scope was slowly withdrawn inspecti ng all surfaces carefully. There were no neoplastic inflammatory or polypoid lesions throughout the cecum, ascending, transverse, descending, sigmoid and rectum. There was no visible diverticulosis noted. Digital rectal examination was normal. The patient was taken to the recovery room in stable condition per anesthesia guidelines. RECOMMENDATIONS: Resume diet. Repeat colonoscopy 10 years.
[2023-03-10 10:44] VITALS: BP 134/81; PULSE 75; RESP 16
== END 2023-03-10 10:53 | disposition home or self-care (01) ==
LOC: ORWHC2ENDO 09:20
PROVIDERS: ATTEND Surgery
DX: R19.4 Change in bowel habit (principal); I47.10 Supraventricular tachycardia, unspecified; Z90.49 Acquired absence of other specified parts of digestive tract; Z88.8 Allergy status to other drugs, medicaments and biological substances; Z79.899 Other long term (current) drug therapy
CPT/HCPCS: 81025; 45378; J2405; J2001; J2704

== ENCOUNTER → 2023-08-17 | Outpatient (CLI) | payer OTHER ==
--- NOTE | 2023-08-20 13:54 | MM ---
Reason for Exam: Screening (asymptomatic). Last mammogram was performed 1 year(s) and 11 month(s) ago. Patient History: Menarche at age 14. First Full-Term at age 28. Patient has history of breast feeding. Currently using Hormonal Contraceptives, for 15 years. 2019, Bilateral Reduction. 09/17/2021, Benign US biopsy breast VAD RT on the right side. Risk Values: Bettie 5 year model risk: 0.6%. NCI Lifetime model risk: 12.6%. Prior Study Comparison: 09/10/2021 Bilateral MG 3D diag mammo w/cad [facility], [facility]. 04/16/2022 Right MG 3D diag mammo w/cad RT, [facility]. Tissue Density: The breasts are heterogeneously dense, which may obscure small masses. Findings: Analyzed By CAD. Right breast: There is no suspicious group of microcalcifications or new suspicious mass. Left breast: There is no suspicious group of microcalcifications or new suspicious mass. Overall Assessment: Negative, BI-RAD 1 Management: Screening Mammogram of both breasts in [address] [facility] will attempt to contact patient to return for supplemental views and ultrasound if indicated. Patient should continue monthly self-breast exams. A clinical breast exam by your physician is recommended on an annual basis. This exam should not preclude additional follow-up of suspicious palpable abnormalities. Note on Bettie scores and lifetime risk: 1. A Bettie score greater than 3% is considered moderate risk. If this is the case, consider specialist referral to assess eligibility for a risk reducing agent. 2. If overall lifetime risk for the development of breast cancer is 20% or higher, the patient may qualify for future screening with alternating mammogram and breast MRI. Electronically signed and approved by: Sagar Garcia DO
== END | disposition home or self-care (01) ==
LOC: RADMAMWWP 15:13
PROVIDERS: ATTEND Obstetrics & Gynecology Obstetrics
DX: Z12.31 Encounter for screening mammogram for malignant neoplasm of breast (principal)
CPT/HCPCS: 77063; 77067

== ENCOUNTER → 2024-09-06 | Outpatient (CLI) | payer OTHER ==
--- NOTE | 2024-09-06 17:59 | MM ---
Reason for Exam: Screening (asymptomatic). Last screening mammogram was performed 12 month(s) ago. Patient History: Menarche at age 14. First Full-Term at age 28. Premenopausal. Patient has history of breast feeding. Other cancer, age 38. Currently using Hormonal Contraceptives, for 15 years. 2018, Bilateral Reduction. 2019, Bilateral Reduction. 09/17/2021, Benign US biopsy breast VAD RT on the right side. Risk Values: Bettie 5 year model risk: 0.7%. NCI Lifetime model risk: 12.5%. Prior Study Comparison: 09/10/2021 Bilateral MG 3D diag mammo w/cad [facility], [facility]. 04/16/2022 Right MG 3D diag mammo w/cad RT, [facility]. 08/17/2023 Bilateral MG 3D screening mammo w/cad, [facility]. Tissue Density: The breasts are heterogeneously dense, which may obscure small masses. Findings: Analyzed By CAD. Microclip right breast from prior biopsy. There is no suspicious group of microcalcifications or new suspicious mass in either breast. Overall Assessment: Benign, BI-RAD 2 Management: Screening Mammogram of both breasts in 1 year. Patient should continue monthly self-breast exams. A clinical breast exam by your physician is recommended on an annual basis. This exam should not preclude additional follow-up of suspicious palpable abnormalities. Note on Bettie scores and lifetime risk: 1. A Bettie score greater than 3% is considered moderate risk. If this is the case, consider specialist referral to assess eligibility for a risk reducing agent. 2. If overall lifetime risk for the development of breast cancer is 20% or higher, the patient may qualify for future screening with alternating mammogram and breast MRI. [facility], , 09/06/2024 5:57 PM. Electronically signed and approved by: Mikayla Cardenas M.D. Radiologist
== END | disposition home or self-care (01) ==
LOC: RADMAMWWP 14:16
PROVIDERS: ATTEND Obstetrics & Gynecology Obstetrics
DX: Z12.31 Encounter for screening mammogram for malignant neoplasm of breast (principal); R92.333 Mammographic heterogeneous density, bilateral breasts; Z79.3 Long term (current) use of hormonal contraceptives
CPT/HCPCS: 77063; 77067